=== PATIENT | female | born 1965 | race Caucasian/White ===

== ENCOUNTER → 2020-03-01 09:47 | Outpatient (POV) | payer OTHER, SELFPAY ==
[2020-03-01 10:20] VITALS: BP 180/75; PULSE 75; RESP 18; TEMP 36.8; O2SAT 99; BMI 38.2
--- NOTE | 2020-03-01 12:54 | [facility].PMCON ---
Assessment and Plan (1) Piriformis syndrome Current visit: Yes Status: Chronic Category: Medical Code(s): G57.00 - Lesion of sciatic nerve, unspecified lower limb (2) CRPS (complex regional pain syndrome type I) Current visit: Yes Status: Chronic Qualifiers: Laterality: bilateral Category: Medical Code(s): G90.50 - Complex regional pain syndrome I, unspecified - Assessment and plan all Dx Assessment and Plan for all problems:: We will give the patient information on a nerve stimulator. Patient is uninterested in injective therapy at this time. Patient's tried and failed multiple medications that we would put her on for her current diagnoses. Patient's been instructed call our office if she would like to move forward with a neurostimulator. Dr. Kevin has reviewed this note and agrees with this plan of care. This note was dictated using voice recognition software and may contain errors or omissions HPI - Data of Consult Consult date: 03/01/20 Requesting Physician: Amy Storey APRN Primary Care Provider: Kit Matthews - Consult Narrative Reason for consult: Bilateral hand pain, wrist pain, hip pain. History of present illness: Ms. Owens is a 54 year old female who presents today for consultation regards to her bilateral wrist pain and left hip pain. Patient has had pain for over a year. She is had surgery on both her right and left wrist. She states that the right wrist is worse. She has not gone through physical therapy for this. She states that that will be happening soon. She is currently in physical therapy for left hip pain. She seems to have extreme tenderness over her left piriformis patient states that she has had injections in the past but in her knees and feet. She rates her pain a 7 out of 10. Tried and failed gabapentin, amitriptyline, Cymbalta. Patient states she has extreme hypersensitivity in her right hand. CC: Amy Storey APRN [facility] [place] History I have reviewed the patient's past medical history: Yes Medical History: Reports:: Congestive Heart Failure, Palpitations Denies:: Cancer, Diabetes Mellitus Type 1, Diabetes Mellitus Type 2, MRSA *Have you ever received a pneumonia vaccine?: Yes *Have you received a flu vaccine this season?: Yes Other Medical History: Reports: Arthritis Other Surgeries: Yes: , Hysterectomy-Total Amputation: No Fractures: Yes - *Social History Smoking Status: Never smoker Alcohol Intake: never *Occupational Status:: other Housing: house Household Members: other *Travel in the last 8 weeks: None Family Hx:: Unable to obtain Review of Systems - Review of Systems Systems ROS General: no recent weight change, no fever, no sleep disturbances Respiratory: no cough, no shortness of air, no recurring pulmonary infections Cardiovascular/Peripheral Vascular: No chest pain, No palpitations, no edema, no shortness of breath. Gastrointestinal: no new onset incontinence, normal bowel movements reported Genitourinary: no new onset incontinence Musculoskeletal: Bilateral wrist pain, left hip pain, left piriformis pain Psychiatric: normal mood/ affect Neurological: [denies new onset weakness in extremities], [denies new onset balance issues] Meds Home Medications Medication Instructions Recorded Confirmed Type Amitriptyline HCl [Elavil 10mg 10 mg PO DAILY 03/01/20 03/01/20 History tablet] Buspirone HCl [Buspirone 15 mg 15 mg PO DAILY 03/01/20 03/01/20 History Tablets] Duloxetine HCl [Drizalma Sprinkle] 30 mg PO DAILY 03/01/20 03/01/20 History Furosemide [Furosemide 40MG tAB] 40 mg PO DAILY 03/01/20 03/01/20 History Gabapentin [Gabapentin 300mg Cap] 300 mg PO TID 03/01/20 03/01/20 History Loratadine 10 mg PO DAILY 03/01/20 03/01/20 History Omeprazole 10 mg PO DAILY 03/01/20 03/01/20 History Pravastatin Sodium [Pravachol 20mg 20 mg PO HS 03/01/20 03/01/20 History Tablet] Tramadol HCl [Tramadol 50mg 50 mg P
== END ==
PROVIDERS: PCP Family Medicine; Visit Provider Clinical Nurse Specialist Family Health
DX: G57.00 Lesion of sciatic nerve, unspecified lower limb (principal); G90.50 Complex regional pain syndrome I, unspecified
CPT/HCPCS: 99202